=== PATIENT | female | born 1990 | race African-American/Black ===

== ENCOUNTER 2017-08-08 17:53 | Emergency (ER) | payer SELFPAY ==
[2017-08-08] MEDS ORDERED: Adacel (T-DAP) 0.5 ML VIAL ONE (20:30)
== END 2017-08-08 20:58 | disposition home or self-care (01) ==
LOC: ERS 17:53
DX: L02.411 Cutaneous abscess of right axilla (principal)
CPT/HCPCS: 10060; 87070; 87077; 87186; 87205; 90471; 90715

== ENCOUNTER 2017-08-26 09:24 | Emergency (ER) | payer SELFPAY | END 2017-08-26 12:12 | disposition home or self-care (01) | LOC: ERS 09:24 | DX: K02.9 Dental caries, unspecified (principal); K04.7 Periapical abscess without sinus; K06.1 Gingival enlargement | CPT/HCPCS: 64400 ==

== ENCOUNTER 2018-01-11 02:20 | Emergency (ER) | payer SELFPAY ==
[2018-01-11] MEDS ORDERED: Metoclopramide HCl 10 MG/2 ML VIAL ONE (03:43)
[2018-01-11] MEDS ORDERED: diphenhydrAMINE 50 MG/ML VIAL ONE (03:43)
[2018-01-11 04:00] LABS: Pregnancy Test - Urine (BHCG) Negative (Negative); Pregu Control Background? CLEAR/WHITE (CLR/WHITE); Pregu Control Bar Appear? YES (CONTROL BAR); Specific Gravity 1.021 (1.002-1.036)
--- NOTE | 2018-01-11 10:04 | CT ---
PRELIMINARY REPORT/[facility]/EMERGENTY AFTER-HOURS PROCEDURE CT Head Without Intravenous Contrast CLINICAL HISTORY: 27 years old, female; Pain; Headache; Patient HX: F29 reports to ed C/O headache. Pt reports BECKER start ed yesterday. Pt has not tried any otc medications. Pt also reports right lower jaw pain that has been intermittent for x2 days. Pt denies HX of BECKER similar to this. Pt denies any trauma to head. Pt d enies vision changes. TECHNIQUE: Axial computed tomography images of the head/brain without intravenous contrast. COMPARISON: No relevant prior studies available. FINDINGS: Brain: Normal. Ventricles: Normal. Bones/joints: Normal. No acute fracture. Soft tissues: Normal. Sinuses: Normal. Mastoid air cells: Normal as visualized. No mastoid effusion. IMPRESSION: Normal head/brain CT. Thank you for allowing us to participate in the care of your patient. Dictated and Authenticated by: Luca Brush MD 01/11/2018 3:48 AM Central Time ([place] & [place]) HEAD CT NONCONTRAST: I agree with the preliminary interpretation provided above. No acute intracranial hemorrhage or mass effect. POS: [facility]
== END 2018-01-11 06:02 | disposition home or self-care (01) ==
LOC: ERS 02:20
DX: R51 Headache (principal)
CPT/HCPCS: 70450; 81025; 96361; 96374; 96375; J1200; J2765

== ENCOUNTER 2018-02-10 11:39 | Emergency (ER) | payer MEDICAID, SELFPAY ==
[2018-02-10] MEDS ORDERED: Bupivacaine 0.25% 10 ML VIAL ONE (11:45)
[2018-02-10] MEDS ORDERED: Lidocaine 1% w/Epinephrine 1:100K 20 ML VIAL ONE (11:45)
[2018-02-10] MEDS ORDERED: Lidocaine Viscous Sol 2% 15 ml UD Cup ONE (11:45)
== END 2018-02-10 13:06 | disposition home or self-care (01) ==
LOC: ERS 11:39
DX: K02.9 Dental caries, unspecified (principal)
CPT/HCPCS: 64400; J2001; S0020

== ENCOUNTER 2020-09-27 10:14 | Emergency (ER) | payer MEDICAID, SELFPAY ==
[2020-09-27] MEDS ORDERED: Ondansetron PF 4 MG/2 ML Vial ONE (10:43)
[2020-09-27 10:50] LABS: #Lymphocytes 2.9 thou/uL (1.20-3.40); #Monocytes 0.7 thou/uL (0.11-0.59); #Neutrophils 9.1 thou/uL (1.40-6.50); %Basophils 0.3 % (0.0-1.0); %Eosinophils 0.3 % (0.0-10.0); %Lymphocytes 22.5 % (21.0-51.0); %Monocytes 5.8 % (0.0-10.0); %Neutrophils 71.2 % (42.0-75.0); Hemoglobin 13.6 g/dL (12.0-16.0); Mean Corpuscular Hemoglobin 31.7 pg (27.0-31.0); Mean Corpuscular Volume 96.1 fL (78.0-98.0); Mean Platelet Volume 7.7 fL (7.4-10.4); Platelet Count 291 thou/uL (130-400); RBC Distribution Width 11.4 % (11.5-14.5); White Blood Cell (WBC) Count 12.8 thou/uL (4.8-10.8)
[2020-09-27 11:01] LABS: Bilirubin Negative (Negative); Blood, Urine Negative (Negative); Clarity Turbid (Clear); Glucose, Urine (Dipstick) Normal (Negative); Ketone, Urine Negative (Negative); Leukocyte 250 Leu/uL (Negative); Nitrite 2+ (Negative); Protein, Urine (Dipstick) 20 mg/dL (Neg-Trace); RBC/HPF 0-3 HPF (0-3); Specific Gravity, Urine 1.021 (1.002-1.036); Urobilinogen Normal mg/dL (Less than 2); WBC/HPF Greater than 50 HPF (0-3)
[2020-09-27 11:02] LABS: Bacteria/HPF 2+ HPF (None Seen)
[2020-09-27 11:12] LABS: ALT (SGPT) 13 U/L (8-55); AST (SGOT) 20 U/L (5-34); Albumin 4.1 g/dL (3.5-5.0); Alkaline Phosphatase 62 U/L (40-110); Anion Gap 15 mmol/L (10-20); BUN (Urea Nitrogen) 12 mg/dL (7.0-18.7); Bilirubin, Total 0.2 mg/dL (0.2-1.2); Calc. Creatinine Clearance 0 mL/min (70-130); Calcium 8.8 mg/dL (7.8-10.44); Carbon Dioxide 22 mmol/L (22-29); Chloride 108 mmol/L (98-107); Globulin 3.4 g/dL (2.4-3.5); Glucose 128 mg/dL (70-105); Lipase 22 U/L (8-78); Potassium 3.5 mmol/L (3.5-5.1); Protein, Total 7.5 g/dL (6.0-8.3); Sodium 141 mmol/L (136-145)
[2020-09-27] MEDS ORDERED: Morphine 4 MG/ML VIAL ONE (11:14)
[2020-09-27 11:18] LABS: BHCG - Serum Negative (NEGATIVE); Pregs Control Background? CLEAR/WHITE (CLR/WHITE); Pregs Control Bar Appear? YES (CONTROL BAR)
[2020-09-27] MEDS ORDERED: cefTRIAXone\\ROCEPHIN 2 GM VIAL ONE (11:58)
[2020-09-27] MEDS ORDERED: Iopamidol-370 76% 500 ML 1 ML ONE (12:49)
== END 2020-09-27 13:46 | disposition home or self-care (01) ==
LOC: ERS 10:14
DX: N39.0 Urinary tract infection, site not specified (principal); R11.2 Nausea with vomiting, unspecified; R19.7 Diarrhea, unspecified; F17.210 Nicotine dependence, cigarettes, uncomplicated
CPT/HCPCS: 74177; 80053; 81003; 81015; 83690; 84703; 85025; 87077; 87086; 87186; 96365; 96375; J0696; J2270; J2405; Q9967

== ENCOUNTER 2020-12-07 22:31 | Emergency (ER) | payer SELFPAY ==
[2020-12-07 23:03] LABS: #Basophils 0.1 thou/uL (0.0-0.2); #Lymphocytes 2.2 thou/uL (1.20-3.40); #Monocytes 0.7 thou/uL (0.11-0.59); #Neutrophils 2.9 thou/uL (1.40-6.50); %Basophils 1.8 % (0.0-1.0); %Eosinophils 0.4 % (0.0-10.0); %Lymphocytes 36.8 % (21.0-51.0); %Monocytes 11.8 % (0.0-10.0); %Neutrophils 49.2 % (42.0-75.0); Hemoglobin 14.2 g/dL (12.0-16.0); Mean Corpuscular HGB CONC 32.2 g/dL (32.0-36.0); Mean Corpuscular Volume 96.5 fL (78.0-98.0); Mean Platelet Volume 7.8 fL (7.4-10.4); Platelet Count 256 thou/uL (130-400); RBC Distribution Width 11.2 % (11.5-14.5); Red Blood Cell (RBC) Count 4.58 mill/uL (4.20-5.40); White Blood Cell (WBC) Count 5.9 thou/uL (4.8-10.8)
[2020-12-07 23:14] LABS: Bilirubin Negative (Negative); Blood, Urine Negative (Negative); Glucose, Urine (Dipstick) Negative (Negative); Ketone, Urine > or equal to 80 mg/dL (Negative); Leukocyte Negative (Negative); Nitrite Negative (Negative); Protein, Urine (Dipstick) Trace mg/dL (Neg-Trace); pH, Urine 6.5 (5.0-9.0)
[2020-12-07 23:23] LABS: ALT (SGPT) 10 U/L (8-55); AST (SGOT) 24 U/L (5-34); Albumin 4.4 g/dL (3.5-5.0); Alkaline Phosphatase 50 U/L (40-110); Anion Gap 15 mmol/L (10-20); BUN (Urea Nitrogen) 13 mg/dL (7.0-18.7); Bilirubin, Total 0.6 mg/dL (0.2-1.2); Calc. Creatinine Clearance 0 mL/min (70-130); Calcium 9.4 mg/dL (7.8-10.44); Carbon Dioxide 22 mmol/L (22-29); Chloride 105 mmol/L (98-107); Globulin 3.2 g/dL (2.4-3.5); Glucose 88 mg/dL (70-105); Potassium 3.9 mmol/L (3.5-5.1); Protein, Total 7.6 g/dL (6.0-8.3); Sodium 138 mmol/L (136-145)
[2020-12-07 23:26] LABS: Pregnancy Test - Urine (BHCG) Negative (Negative); Pregu Control Background? CLEAR/WHITE (CLR/WHITE); Pregu Control Bar Appear? YES (CONTROL BAR); Specific Gravity 1.025 (1.002-1.036)
[2020-12-07 23:28] LABS: Clarity Clear (Clear)
== END 2020-12-08 01:35 | disposition home or self-care (01) ==
LOC: ERS 22:31
DX: K59.00 Constipation, unspecified (principal); R91.1 Solitary pulmonary nodule; F17.210 Nicotine dependence, cigarettes, uncomplicated
CPT/HCPCS: 36415; 71045; 80053; 81003; 81025; 84484; 85025; 93005

== ENCOUNTER 2024-02-21 13:36 | Emergency (ER) | payer SELFPAY ==
[2024-02-21 14:38] LABS: Bacteria/HPF 4+ HPF (None Seen); Bilirubin Negative (Negative); Blood, Urine Negative (Negative); CAUTI Indications for Culture Pelvic or flank pain; Clarity Clear (Clear); Glucose, Urine (Dipstick) Normal (Negative); Ketone, Urine Negative (Negative); Leukocyte Negative Leu/uL (Negative); Nitrite 2+ (Negative); Protein, Urine (Dipstick) Negative (Neg-Trace); RBC/HPF 0-3 HPF (0-3); Specific Gravity, Urine 1.023 (1.002-1.036); Squamous Epithelial 0-3 HPF (0-3); Urobilinogen Normal mg/dL (Less than 2); WBC/HPF 0-3 HPF (0-3); pH, Urine 6.5 (5.0-9.0)
[2024-02-21 14:44] LABS: Urine Culture Reflex No No
[2024-02-21 14:45] LABS: Pregnancy Test - Urine (BHCG) Negative (Negative); Pregu Control Background? CLEAR/WHITE (CLR/WHITE); Pregu Control Bar Appear? YES (CONTROL BAR); Specific Gravity 1.023 (1.002-1.036)
== END 2024-02-21 19:40 | disposition left against medical advice (07) ==
LOC: ERS 13:36
DX: Z53.21 Procedure and treatment not carried out due to patient leaving prior to being seen by health care provider (principal)
CPT/HCPCS: 81001; 81025